=== PATIENT | female | born 1965 | race Two or more races ===

== ENCOUNTER → 2025-07-07 | Outpatient (CLI) | payer SELFPAY ==
--- NOTE | 2025-07-07 13:00 | XR_ITS ---
Examination: Duplex scan of the lower extremity, unilateral left Date and time of exam: July 07, 2025, 1347 hours INDICATIONS: Left lower extremity pain and bruising varicose veins 3 weeks Technique: Duplex scan of the extremity veins using B-mode/grayscale imaging and Doppler spectral analysis and color flow Attention is directed to internal echogenicity, compression and augmentation involving these veins, color flow assessment, spectral analysis Findings: Major deep venous structures in the extremity demonstrate normal course and caliber. There is no evidence of deep vein thrombosis. Normal color flow and spectral analysis Impression: Negative for DVT..
== END | disposition home or self-care (01) ==
PROVIDERS: PCP Nurse Practitioner Family; Referring Provider Nurse Practitioner Family; Visit Provider Nurse Practitioner Family
DX: I83.812 Varicose veins of left lower extremity with pain (principal); M79.662 Pain in left lower leg; S80.12XA Contusion of left lower leg, initial encounter; X58.XXXA Exposure to other specified factors, initial encounter
CPT/HCPCS: 93971

== ENCOUNTER → 2025-07-26 | Outpatient (CLI) | payer OTHER, SELFPAY ==
--- NOTE | 2025-07-26 10:15 | XR_ITS ---
Examination: Breast ultrasound complete, bilateral Date and time of exam: July 26, 2025, 1048 hours INDICATIONS: Left breast pain beginning 6 months ago Technique: Real-time grayscale ultrasonographic imaging bilateral breasts, including all 4 quadrants as well as nipple retroareolar and axillary regions. Findings: Sonographic images right and left breast demonstrate no cystic or solid masses IMPRESSION: Negative examination
--- NOTE | 2025-07-26 11:15 | XR_ITS ---
Examination: Diagnostic digital mammography, bilateral Computer aided detection 3-D breast Tomosynthesis, bilateral Date and time of exam: July 26, 2025, 1122 hours, compared to mammograms dating to September 20, 2016 INDICATIONS: Left breast pain 6 months Technique: Nonmagnified MLO, CC views of the breasts to been obtained, reconstructed from 3-D Tomosynthesis images. R2 computer aided detection program utilized for evaluation of suspicious masses and/or abnormal calcifications. 3-D Tomosynthesis images obtained. Findings: Scattered areas of fibroglandular density. Benign calcifications. No interval suspicious masses Impression: BI-RADS Category 2: Benign findings Return to yearly follow-up mammography.
== END | disposition home or self-care (01) ==
LOC: CDIM 10:29
DX: R92.323 Mammographic fibroglandular density, bilateral breasts (principal); R92.1 Mammographic calcification found on diagnostic imaging of breast
CPT/HCPCS: 76641; 77062; 77066; G0279